=== PATIENT | female | born 1975 | race Caucasian/White ===

== ENCOUNTER 2017-07-15 21:24 | Emergency (ER) | payer SELFPAY ==
[~2017-07-15] VITALS: Ht 165.1 cm; Wt 66.0 kg
[2017-07-15 21:28] VITALS: BP 137/100
== END 2017-07-16 02:30 | disposition left against medical advice (07) ==
LOC: ER 21:24
DX: R20.2 Paresthesia of skin (principal); Z53.21 Procedure and treatment not carried out due to patient leaving prior to being seen by health care provider